=== PATIENT | female | born 1940 | race Two or more races ===

== ENCOUNTER 2023-07-26 15:43 | Emergency (ER) | payer OTHER ==
[~2023-07-26] VITALS: Ht 157.5 cm; Wt 77.9 kg
[2023-07-26 18:24] VITALS: BP 105/58; PULSE 79; RESP 18; TEMP 98.6; O2SAT 96
[2023-07-26] MEDS ORDERED: AMOX875T4 PO (19:19)
[2023-07-26] MEDS ORDERED: PRED10TA PO (19:19)
[2023-07-26] MEDS: cefTRIAXone SOD 1,000 MG VL IM ONE (19:26)
[2023-07-26] MEDS ORDERED: ERY05OO OP (19:36)
== END 2023-07-26 19:35 | disposition home or self-care (01) ==
LOC: ER 15:43
DX: J06.9 Acute upper respiratory infection, unspecified (principal); H10.89 Other conjunctivitis; F32.9 Major depressive disorder, single episode, unspecified; Z90.710 Acquired absence of both cervix and uterus; Z90.49 Acquired absence of other specified parts of digestive tract; Z90.89 Acquired absence of other organs
CPT/HCPCS: 96372; 99283; J0696